=== PATIENT | male | born 1950 | race Caucasian/White ===

== ENCOUNTER 2019-03-01 22:04 | Emergency (ER) | payer MEDICARE, BC ==
[~2019-03-01 22:04] MED LIST: Omeprazole 20 MG Cap.CR ONE; predniSONE 10 MG Tab ONE
--- NOTE | 2019-03-02 00:37 | ER ---
HISTORY OF PRESENT ILLNESS: A 68-year-old male here with his with complaints of an itchy red rash that is present on the patient's shoulders and groin area. His tells me there are many raised areas, it flared up earlier this evening, he had the same rash last evening. He took a Benadryl last evening and it seemed like it quieted down, and by this morning, the patient did not have the rash. It did not reoccur until this evening. He took 2 Benadryl this evening and states that he is feeling better. The itching is getting better. The patient has also had some heartburn symptoms over the last couple of days. He states he has felt sick for 3 or 4 days. He has been feverish and has been achy. These symptoms are all starting to improve. He is not coughing. He is not having any problems with chest pain or shortness of breath. He does not feel nauseated. The patient states that he does normally eat a lot of spicy food, but he has not done so in the last 3 or 4 days. He is pointing to the epigastric area midline and slightly to the left when describing the area of heartburn. The patient has not been vomiting. OBJECTIVE: GENERAL APPEARANCE: The patient is awake and alert. No respiratory distress. VITAL SIGNS: Reviewed. Blood pressure 143/83, pulse 116, his temp is 100 degrees, O2 sats are 92% on room air, respirations are 16. Physical exam, examining the patient's torso reveals a blotchy erythematous rash with multiple raised wheal-like areas, present mostly over the anterior shoulders and to a lesser degree in the posterior shoulders. It seems to be sparing his face and abdomen as well as his arms. The patient states he has mild involvement in the groin that is similar. LUNGS: Clear to auscultation with good air exchange. CARDIAC: Heart sounds distinct. S1, S2 present. Regular rate. No murmurs. DIAGNOSES: 1. Gastroesophageal reflux disease symptoms. 2. Urticaria. TREATMENT PLAN: The patient will be given omeprazole 20 mg. He is to take it at night. I want him to use this for 2 weeks. He is to use a soft bland diet and slowly increase his diet as his symptoms should be improving. For the rash, he is to continue on Benadryl, taking it 2 or 3 times a day, and we will put him on a prednisone taper 30 mg a day for 3 days, then 20 mg a day for 2 days, then 10 mg a day for 2 days. The patient is to monitor what happens, and if he does break out in a rash again, he is to pay attention to what he ate or came in contact with for an hour or so before the rash flares up. The patient and his are thinking about different things that could have happened tonight, but they are not coming up with any obvious answers. I advised him to pay attention anything that he comes in contact with, with medication as well as food and any clothing and laundry type products. Followup should be over the next day or 2 if his symptoms are not improving, sooner as needed if his condition should get worse. The patient and his have no further questions and agree with the treatment plan. CRS/MODL /[id number]
== END 2019-03-01 22:50 | disposition home or self-care (01) ==
LOC: LB.ED 22:04
DX: L50.9 Urticaria, unspecified (principal); K21.9 Gastro-esophageal reflux disease without esophagitis
CPT/HCPCS: 99282; A9270; 99283

== ENCOUNTER 2020-08-29 11:57 | Day surgery (SDC) | payer MEDICARE, BC ==
[~2020-08-29 11:57] MED LIST changes: +Metoclopramide 10 MG/2 ML SDV IV PRN; -Omeprazole 20 MG Cap.CR ONE; +Sodium Chloride 0.9% 1,000 ML IV SCH; -predniSONE 10 MG Tab ONE
[2020-08-29] MEDS ORDERED: Propofol 1,000 MG/100 ML SDV ONE (14:25)
--- NOTE | 2020-08-29 15:19 | OR ---
DATE OF OPERATION: 08/29/2020 SURGEON: Taras Garcia MD PREOPERATIVE DIAGNOSIS: Surveillance colonoscopy. POSTOPERATIVE DIAGNOSIS: Surveillance colonoscopy. PROCEDURE: Colonoscopy with polypectomy. ANESTHESIA: MAC. ESTIMATED BLOOD LOSS: Minimal. COMPLICATIONS: None. INDICATION FOR THE PROCEDURE: The patient is a 69-year-old male here today for surveillance colonoscopy. Last scope was about 8-10 years ago and did have some polyps at that time. Otherwise, denies any change in bowel habits. DESCRIPTION OF PROCEDURE: Informed consent was obtained from the patient. The patient was taken to the operating room and placed on table in left lateral decubitus position. Monitored anesthesia care was administered. Colonoscope then advanced through the anus toward the cecum. Cecum was reached and identified by appendiceal orifice and ileocecal valve. Colonoscope then slowly withdrawn. He did have 1 small sessile polyp in the rectum. This was removed with hot biopsy polypectomy. Colonoscope then fully withdrawn. FINDINGS: Rectal polyp. RECOMMENDATIONS: We would recommend repeat surveillance colonoscopy in 5 years. We will also follow up on pathology results. BRODY /[id number]
== END 2020-08-29 15:10 | disposition home or self-care (01) ==
LOC: LB.SDS 11:57
PROVIDERS: ATTEND Surgery
DX: Z12.11 Encounter for screening for malignant neoplasm of colon (principal); D12.8 Benign neoplasm of rectum; G89.29 Other chronic pain; M25.569 Pain in unspecified knee
CPT/HCPCS: J2704; J7030

== ENCOUNTER 2024-10-08 08:04 | Day surgery (SDC) | payer MEDICARE ==
[~2024-10-08 08:04] MED LIST changes: +Lactated Ringers 1,000 ML IV SCH; -Metoclopramide 10 MG/2 ML SDV IV PRN; -Sodium Chloride 0.9% 1,000 ML IV SCH
[2024-10-08] MEDS: Lactated Ringers 1,000 ML IV SCH (08:40)
[2024-10-08] MEDS: ceFAZolin 1 GM in Sodium Chloride 0.9% 50 ML IV SCH (09:16)
[2024-10-08] MEDS ORDERED: Midazolam 1 MG/ML 2 ML SDV ONE (09:45)
[2024-10-08] MEDS ORDERED: Lidocaine 1% 30 ML SDV ONE (09:45)
[2024-10-08] MEDS ORDERED: Lidocaine 0.5% 50 ML SDV ONE (09:45)
[2024-10-08] MEDS ORDERED: Propofol 200 MG/20 ML SDV ONE (09:45)
[2024-10-08] MEDS: Acetaminophen/HYDROcodone 325-5 MG Tab PO PRN (11:13)
== END 2024-10-08 11:22 | disposition home or self-care (01) ==
LOC: LB.SDS 08:04
PROVIDERS: ATTEND Orthopaedic Surgery
DX: M65.341 Trigger finger, right ring finger (principal); E66.9 Obesity, unspecified; Z88.8 Allergy status to other drugs, medicaments and biological substances; Z68.33 Body mass index [BMI] 33.0-33.9, adult
CPT/HCPCS: A9270-GY; J0690; J2250; J2704; J3490; J7120

== ENCOUNTER 2025-09-21 13:31 | Emergency (ER) | payer MEDICARE ==
[2025-09-21] MEDS: Lidocaine 1% with EPINEPHrine 1:100,000 20 ML MDV INJECT ONE (15:25)
[2025-09-21] MEDS: Bacitracin Oint 1 GM U/D Packet TOP ONE (15:40)
[2025-09-21] MEDS: Diphtheria,Pertussis(Acell),Tetanus Vaccine 0.5 ML Syringe IM ONE (15:45)
[2025-09-21] MEDS: Lidocaine 1% with EPINEPHrine 1:100,000 50 ML MDV INFILT ONE (17:05)
== END 2025-09-21 15:55 | disposition home or self-care (01) ==
LOC: LB.ED 13:31
DX: S60.852A Superficial foreign body of left wrist, initial encounter (principal); Z79.899 Other long term (current) drug therapy; Z23 Encounter for immunization; Z79.82 Long term (current) use of aspirin; W45.8XXA Other foreign body or object entering through skin, initial encounter
CPT/HCPCS: 10120; 90471; 90715; 99283-25; A9270-GY; J2004